=== PATIENT | male | born 1985 | race Caucasian/White ===

== ENCOUNTER 2018-07-08 10:35 | Emergency (ER) | payer OTHER ==
[2018-07-08 10:52] VITALS: BP 168/108
--- NOTE | 2018-07-08 11:08 | EDPHY ---
H & P Stated Complaint: BLOODY BOWEL MOVEMENTS X2 THIS MORNING, LOW ABD PAIN Time Seen by Provider: 07/08/18 10:41 HPI/ROS: CHIEF COMPLAINT: Bloody stool HISTORY OF PRESENT ILLNESS: Patient is a 32-year-old man who comes to the emergency department complaining of red bloody stool dripping into the toilet bowl. It is on the outside of his feces. He has pictures with him. He was concerned because he slipped and fell onto his buttocks 3 days ago. He had pain in his buttocks initially but that has since resolved. No vomiting. No fever. He 1st noticed the bleeding this morning. This is not happened before. He does have pain with defecation. No pain at baseline. Severity: Moderate Modifying factors: None REVIEW OF SYSTEMS: Constitutional: denies: chills, fever, recent illness, recent injury EENTM: denies: blurred vision, double vision, nose congestion Respiratory: denies: cough, shortness of breath Cardiac: denies: chest pain, irregular heart rate, lightheadedness, palpitations Gastrointestinal/Abdominal: See HPI denies: abdominal pain, diarrhea, nausea, vomiting, Genitourinary: denies: dysuria, frequency, hematuria, pain Musculoskeletal: denies: joint pain, muscle pain Skin: denies: lesions, rash, jaundice, bruising Neurological: denies: headache, numbness, paresthesia, tingling, dizziness, weakness Hematologic/Lymphatic: denies: blood clots, easy bleeding, easy bruising Immunologic/allergic: denies: HIV/AIDS, transplant 10 systems reviewed and negative except as noted EXAM: GENERAL: Well-appearing, well-nourished and in no acute distress. HEAD: Atraumatic, normocephalic. EYES: Pupils equal round and reactive to light, extraocular movements intact, sclera anicteric, conjunctiva are normal. ENT: TMs normal, nares patent, oropharynx clear without exudates. Moist mucous membranes. NECK: Normal range of motion, supple without lymphadenopathy or JVD. LUNGS: Breath sounds clear to auscultation bilaterally and equal. No wheezes rales or rhonchi. HEART: Regular rate and rhythm without murmurs, rubs or gallops. ABDOMEN: Soft, nontender, normoactive bowel sounds. No guarding, no rebound. No masses appreciated. Rectal: The patient does have internal hemorrhoids seen on proctoscope. He currently not bleeding. No visible fissures. No significant pain with the examination. BACK: No CVA tenderness, no spinal tenderness, step-offs or deformities EXTREMITIES: Normal range of motion, no pitting or edema. No clubbing or cyanosis. NEUROLOGICAL: Cranial nerves II through XII grossly intact. Normal speech, normal gait. 5/5 strength, normal movement in all extremities, normal sensation , normal reflexes PSYCH: Normal mood, normal affect. SKIN: Warm, dry, normal turgor, no visible rashes or lesions. y new adult chart Source: Patient Exam Limitations: No limitations - Medical/Surgical History Hx Asthma: No Hx Chronic Respiratory Disease: No Hx Diabetes: No Hx Cardiac Disease: No Hx Renal Disease: No Hx Cirrhosis: No Hx Alcoholism: No Hx HIV/AIDS: No Other PMH: HTN, NASAL SURG - Family History Significant Family History: No pertinent family hx - Social History Smoking Status: Former smoker Alcohol Use: None Constitutional: Initial Vital Signs Heart Rate 74 07/08/18 10:43 Respiratory Rate 18 07/08/18 10:43 Blood Pressure 168/108 H 07/08/18 10:43 O2 Sat (%) 96 07/08/18 10:43 O2 Delivery Mode Room Air Allergies/Adverse Reactions: No Known Allergies Allergy (Unverified 07/08/18 10:43) Home Medications: Medication Instructions Recorded Hydrocortisone Acetate [Anucort-Hc] 25 mg RC TID PRN #30 supp.rect 07/08/18 Medical Decision Making ED Course/Re-evaluation: The patient's abdominal exam is benign. He has internal hemorrhoids seen on proctoscope. We suggested lidocaine/hydrocortisone suppositories as well as MiraLax as needed and Sitz baths. The patient understands and agrees with this plan. I will have him follow up with surgery as needed. Discussed indications for returning. Differential Diagnosis: Partial list of the Differential diagnosis considered include but were not limited to; external hemorrhoid, internal hemorrhoid, fissure and although unlikely based on the history and physical exam, I also considered trauma, contusion, fracture, diverticulitis, appendicitis. I discussed these differential diagnoses and the plan with the patient as well as the usual and expected course. The patient understands that the diagnosis is provisional and that in medicine we are not always correct and that further workup is often warranted. Usual and customary warnings were given. All of the patient's questions were answered. The patient was instructed to return to the emergency department should the symptoms at all worsen or return, otherwise to followup with the physician as we discussed. Departure - Departure Disposition: Home, Routine, Self-Care Clinical Impression: Internal hemorrhoid, bleeding Condition: Fair Instructions: Hemorrhoids (ED), Sitz Bath (DC) Additional Instructions: Use MiraLax as a stool softener in addition to fiber. Titrate as discussed. Referrals: NONE *PRIMARY CARE P,. [Primary Care Provider] - As per Instructions Ilan Norman MD [Medical Doctor] - 5-7 days, if not improved Prescriptions: Hydrocortisone Acetate [Anucort-Hc] 25 mg RC TID PRN #30 supp.rect PRN Reason: Pain, Moderate
== END 2018-07-08 11:26 | disposition home or self-care (01) ==
LOC: CED 10:35
DX: K64.8 Other hemorrhoids (principal)
CPT/HCPCS: 99283-ER

== ENCOUNTER → 2018-08-01 | Outpatient (CLI) | payer OTHER | LOC: FIMAGING 06:47 | PROVIDERS: ATTEND Family Medicine | DX: K76.0 Fatty (change of) liver, not elsewhere classified (principal); E78.1 Pure hyperglyceridemia ==